=== PATIENT | female | born 1960 | race Caucasian/White ===

== ENCOUNTER → 2019-07-02 | Outpatient (REF) | payer OTHER | LOC: M LAB LCGH 11:36 | PROVIDERS: ATTEND Obstetrics & Gynecology Obstetrics | DX: Z12.4 Encounter for screening for malignant neoplasm of cervix (principal); N88.8 Other specified noninflammatory disorders of cervix uteri ==

== ENCOUNTER 2020-12-11 22:47 | Emergency (ER) | payer OTHER ==
[~2020-12-11] VITALS: Ht 167.6 cm; Wt 67.9 kg
[2020-12-12 02:01] VITALS: BP 141/80
== END 2020-12-12 02:13 | disposition home or self-care (01) ==
LOC: M ED 22:47
DX: H53.9 Unspecified visual disturbance (principal); E73.9 Lactose intolerance, unspecified; Z88.2 Allergy status to sulfonamides; Z91.89 Other specified personal risk factors, not elsewhere classified